=== PATIENT | female | born 1995 | race Caucasian/White ===

== ENCOUNTER 2018-04-21 06:10 | Day surgery (SDC) | payer OTHER ==
[2018-04-21] MEDS ORDERED: METOCLOPRAMIDE 10 MG INJ (07:00)
[2018-04-21] MEDS ORDERED: CEFAZOLIN 1 GM INJ (07:00)
[2018-04-21] MEDS ORDERED: DEXAMETHASONE 4 MG/ML 1 ML INJ (07:00)
[2018-04-21] MEDS: LACTATED RINGER'S 1,000 ML IV (07:03)
[2018-04-21] MEDS: BUPIVACAINE 0.25%/EPI (SDV) 30 ML INJ (07:18)
[2018-04-21] MEDS: LIDOCAINE 1% (MPF) 30 ML INJ (07:18)
[2018-04-21] MEDS ORDERED: FENTAnyl 50 MCG/ML VIAL (07:29)
[2018-04-21] MEDS ORDERED: MIDAZOLAM 1 MG/ML 2 ML INJ (07:29)
[2018-04-21] MEDS ORDERED: SUCCINYLCHOLINE CHLORIDE 100 MG/5 ML SYG IV (07:29)
[2018-04-21] MEDS ORDERED: LIDOCAINE 2% (SDV) 5 ML INJ (07:29)
[2018-04-21] MEDS ORDERED: PROPOFOL 20 ML (07:29)
[2018-04-21] MEDS ORDERED: ROCURONIUM 50 MG INJ (07:30)
[2018-04-21] MEDS ORDERED: ONDANSETRON 4 MG INJ (07:30)
[2018-04-21] MEDS ORDERED: OXYCODONE/ACETAMINOPHEN (5/325) TAB PO ×2 (09:00)
[2018-04-21] MEDS ORDERED: morphine 2 MG INJ IV (09:00)
[2018-04-21] MEDS ORDERED: ONDANSETRON 4 MG INJ IV ×2 (09:00→09:30)
[2018-04-21] MEDS ORDERED: ALBUTEROL 0.5% (NEB) 2.5 MG/0.5 ML AMP (09:26)
[2018-04-21] MEDS ORDERED: HYDROmorphONE 1 MG/5 ML IV SYRINGE IV (09:30)
[2018-04-21] MEDS ORDERED: MEPERIDINE 25 MG INJ IV (09:30)
[2018-04-21] MEDS ORDERED: DIPHENHYDRAMINE 50 MG INJ IV (09:30)
[2018-04-21] MEDS: IPRATROPIUM (NEB) 0.5 MG/2.5 ML AMP HHN (09:37)
[2018-04-21] MEDS: FENTAnyl 50 MCG/ML VIAL IV ×3 (09:41→09:59)
[2018-04-21] MEDS: HYDROmorphONE 1 MG/5 ML IV SYRINGE IV (10:06)
== END 2018-04-21 11:31 | disposition home or self-care (01) ==
LOC: SDS 06:10
DX: D17.1 Benign lipomatous neoplasm of skin and subcutaneous tissue of trunk (principal)
CPT/HCPCS: 21933; 84703; 88304; 94664